=== PATIENT | female | born 1990 | race African-American/Black ===

== ENCOUNTER 2019-11-04 23:40 | Observation (INO) | payer OTHER, SELFPAY ==
[2019-11-04 23:52] VITALS: BP 82/63; PULSE 80
[2019-11-05] VITALS: BP 123/58; PULSE 72
[2019-11-05 00:15] VITALS: BP 105/66; PULSE 80
[2019-11-05] MEDS: ACETAMINOPHEN 500 MG TABLET 1000 MG PO (00:49)
--- NOTE | 2019-11-12 09:29 | PM.OBTRLD ---
OB - Triage/Final Diagnosis Final Diagnosis (1) False labor: Code(s): O47.9 - False labor, unspecified Status: Acute
== END 2019-11-05 02:05 | disposition home or self-care (01) ==
PROVIDERS: Admitting Provider Obstetrics & Gynecology Gynecology; Visit Provider Obstetrics & Gynecology Gynecology
DX: O47.1 False labor at or after 37 completed weeks of gestation (principal); Z3A.37 37 weeks gestation of pregnancy
CPT/HCPCS: A9270; G0378; G0379

== ENCOUNTER 2019-11-12 13:36 | Observation (INO) | payer OTHER, SELFPAY ==
--- NOTE | 2019-11-12 13:36 | OBADM ---
This patient, Sofia Verduzco, admitted to the OB room Labor/Delivery/Recovery 107 for observation. Patient/family oriented to hospital policies and general routines including ID bracelet, bed and alarms, visiting hours, pain management, procedures, bathroom and other care routines, personal items, smoking policy, room service/diet, and visiting hours. Patient/Family are encouraged to report perceived risks to care and to ask questions if they do not understand what they are told or what they should do.
[2019-11-12 14:00] VITALS: BMI 23.4
[2019-11-12 14:20] VITALS: TEMP 37.4
[2019-11-12 15:21] LABS: Add Urine Microscopic? YES; Appearance Urine Clear (Clear); Bacteria Urine Trace /hpf; Bilirubin Urine Negative (Negative); Blood Urine Negative (Negative); Color Urine Straw (Yellow); Glucose Urine UA 1+ mg/dL (Negative); Ketones Urine Negative (Negative); Leukocyte Esterase Ur Negative LEU/UL (NEGATIVE); Mucus Urine Rare /lpf; Nitrate Urine Negative (Negative); Protein Urine Negative (Negative); RBC Urine 0-2 /hpf (0-2); Specific Grav Ur 1.012 (1.001-1.035); Squamous Epithelial Cell Urine Many /hpf (Few); Urobilinogen Urine Negative mg/dL (<2.0); WBC Urine 0-3 /hpf (0-3)
--- NOTE | 2019-11-24 12:53 | PM.OBDSVD ---
OB - DS: Summary OB Procedures : None OB Procedures Intrapartum: Spontaneous Vag Delivery OB Procedures: : None Time Spent with Patient Time attestation: Total time spent providing and/or coordinating discharge services: Discharge Plan Discharge Discharging Clinician: Randolph Overton Patient Disposition: Home, Self-Care Activity: as tolerated Diet: regular Discharge Instructions: OB ANTEPARTUM DISCHARGE INSTRUCTIONS This information is given to help you properly care for yourself at home after your discharge from the hospital. Follow these instructions until your doctor tells you otherwise. DIET: Eat Three Well Balanced Meals per Day Drink at Least Eight 8-Ounce Glasses of Caffeine-Free Beverages Daily Additional Diet Instructions: ACTIVITY: As Tolerated Additional Activity Instructions: RETURN TO LABOR AND DELIVERY IF YOU HAVE: Any Change In Baby's Normal Movement Pattern Any Leakage of Fluid Contractions 3-5 Minutes Apart with Increasing Intensity Vaginal Bleeding Additional Reasons to Return to Labor and Delivery: Contractions may feel like abdominal pain, tightening, cramping, pressure, back ache, or thigh ache. 24 Hour Urine Collection: Continue 24 hour urine collection until at . When collection is completed, return specimen to the [facility]. See handout for 24 hour urine collection. OTHER INSTRUCTIONS: FOLLOW-UP CARE: Keep Next Scheduled Appointment To see in/on Valuables released to patient or family? N/A Medications from home returned to patient? N/A I Acknowledge Receipt of and Understand the Above Instructions IF YOU HAVE ANY QUESTIONS REGARDING THESE INSTRUCTIONS, PLEASE CALL [phone]. IF PROBLEMS ARISE, CALL YOUR PROVIDER. IF EMERGENCY CARE IS NEEDED, [facility] IS AVAILABLE 24 HOURS A DAY. Patient Instructions: Antibiotic Form Stand Alone Forms: General Discharge Information Follow-up/Referrals: Randolph Overton MD [Physician] - Discharge Medications: No Action hydrocodone-acetaminophen 5-325 mg Tablet 1 tab PO Q3H PRN (Reason: Moderate Pain (4-6)) Qty: 20 RF: 0 ibuprofen 600 mg Tablet 600 mg PO Q6H PRN (Reason: Cramping) Qty: 30 RF: 0 Date of admission: 11/12/19 13:36 Primary Care Provider: PHYSICIAN,PUBLIC SERVICE OFFICER Admitting Provider: Randolph Overton Discharge Date/Time: 11/12/19 16:49 Attending physician on admission: Randolph Overton
--- NOTE | 2019-11-24 12:53 | PM.OBTRLD ---
OB - Triage/Final Diagnosis Visit Information Reason for evaluation: threatened labor Evaluation Laboratory results: Laboratory Tests 11/12/19 15:07 Urine Color Straw Urine Appearance Clear Urine pH 9.0 Ur Specific [employer] 1.012 Urine Protein Negative Urine Glucose (UA) 1+ H Urine Ketones Negative Ur Blood (Man) Negative Urine Nitrate Negative Urine Bilirubin Negative Urine Urobilinogen Negative Ur Leukocyte Esterase Negative Urine RBC 0-2 Urine WBC 0-3 Ur Squamous Epith Cells Many H Urine Bacteria Trace Urine Mucus Rare
== END 2019-11-12 16:49 | disposition home or self-care (01) ==
PROVIDERS: Admitting Provider Obstetrics & Gynecology; Visit Provider Obstetrics & Gynecology
DX: O60.00 Preterm labor without delivery, unspecified trimester (principal); Z3A.00 Weeks of gestation of pregnancy not specified
CPT/HCPCS: 81001; 87077; 87086; 87088; G0378; G0379

== ENCOUNTER 2019-11-16 18:03 | Inpatient (IN) | payer OTHER, SELFPAY ==
[2019-11-16] VITALS (21 sets, daily range): BP systolic 92–119; BP diastolic 35–71; PULSE 69–93; TEMP 37.3; BMI 27.4
--- NOTE | 2019-11-16 18:33 | LDADM ---
This patient, Sofia Verduzco, was admitted to Labor/Delivery/Recovery 103 on 11/16/19 at 18:03. Plans for labor, pain management and were discussed with patient. Patient/family oriented to hospital policies and general routines including ID bracelet, bed and alarms, visiting hours, pain management, procedures, bathroom and other care routines, personal items, smoking policy, room service/diet and guest tray routines, infant security routines, and visiting hours. Patient/Family are encouraged to report perceived risks to care and to ask questions if they do not understand what they are told or what they should do. See OBIX for further documentation.
[2019-11-16 19:31] LABS: Basophils Percent Auto 0.2 % (0.2-1.2); Eosinophils Absolute Auto 0.1 K/mm3 (0-0.3); Eosinophils Percent Auto 1.1 % (0-4.4); Hematocrit 27.7 % (37.0-47.0); Hemoglobin 8.5 g/dL (12.0-15.0); Immature Granulocyte Absolute 0.04 K/mm3 (0.00-0.031); Immature Granulocyte Percent A 0.4 % (0-0.5); Lymphocytes Absolute Auto 1.57 K/mm3 (0.9-3.2); Lymphocytes Percent Auto 16.6 % (18.3-44.2); Mean Corpuscular HGB Conc 30.7 g/dl (32-36); Mean Corpuscular Hemoglobin 22.7 pg (26-34); Mean Corpuscular Volume 73.9 fl (80-100); Mean Platelet Volume 11.8 fl (7.4-10.4); Monocytes Absolute Auto 0.6 K/mm3 (0.1-0.6); Monocytes Percent Auto 6.3 % (2.6-8.5); Neutrophils Absolute Auto 7.1 K/mm3 (1.3-6.7); Neutrophils Percent Auto 75.4 % (45.5-73.1); Platelet Count Result 163 k/mm3 (150-375); Red Blood Count 3.75 M/mm3 (4.2-5.4); White Blood Count 9.4 K/mm3 (4.5-10.0)
[2019-11-16] MEDS: DINOPROSTONE 10 MG VAG INSERT VAGINAL (19:32)
[2019-11-16 19:47] LABS: Amphetamine Screen Urine Negative (Negative); Barbiturate Screen Urine Negative (Negative); Benzodiazepines Screen Urine Negative (Negative); Cannabinoid Screen Urine Positive (Negative); Cocaine Screen Urine Negative (Negative); Methadone Screen Urine Negative (Negative); Opiate Screen Urine Negative (Negative); Phencyclidine Screen Urine Negative (Negative)
[2019-11-16] MEDS: LACTATED RINGERS 1,000 ML 125 ML IV CONT (20:00)
[2019-11-16] MEDS: AMPICILLIN 2 GM/NS 100 ML 2 GM/100 ML BAG IVPB (20:00)
[2019-11-16 20:23] LABS: HIV 1/2 Ab P24 Ag Result Negative (Negative)
[2019-11-17] VITALS (84 sets, daily range): BP systolic 74–136; BP diastolic 46–94; PULSE 51–167; RESP 16–18; TEMP 36.6–37.2; O2SAT 100
[2019-11-17] MEDS: AMPICILLIN 1 GM/NS 50 ML 1 GM/50 ML BAG IVPB ×4 (00:02→11:36)
[2019-11-17] MEDS: OXYTOCIN 30 UNITS/NS 500 ML 30 UNITS/500 ML BAG IV CONT (05:15)
--- NOTE | 2019-11-17 06:21 | WPDANESEPP ---
Anes - Eval Pre Procedure Procedure: labor epidural Date/Time: 11/17/19 06:21 Surgeon: kirby Preop Diagnosis: pain during labor Pre Op Diagnosis: Induction of Labor Patient Data Age: 29 Gender: F Height: 1.7 m Weight: 79.5 kg Last Vital Signs Temp 36.9 C 11/17/19 04:30 Pulse 64 11/17/19 06:16 BP 100/46 L 11/17/19 06:16 Allergies Allergy/AdvReac Type Severity Reaction Status Date / Time No Known Allergies Allergy Verified 11/05/19 00:45 Laboratory Tests 11/16/19 11/16/19 11/16/19 19:11 19:11 19:11 WBC 9.4 K/mm3 K/mm3 (4.5-10.0) RBC 3.75 M/mm3 L M/mm3 (4.2-5.4) Hgb 8.5 g/dL L g/dL (12.0-15.0) Hct 27.7 % L % (37.0-47.0) MCV 73.9 fl L fl (80-100) MCH 22.7 pg L pg (26-34) MCHC 30.7 g/dl L g/dl (32-36) RDW 15.0 % H % (11.5-14.5) Plt Count 163 k/mm3 k/mm3 (150-375) MPV 11.8 fl H fl (7.4-10.4) Immature Gran % (Auto) 0.4 % % (0-0.5) Neut % (Auto) 75.4 % H % (45.5-73.1) Lymph % (Auto) 16.6 % L % (18.3-44.2) [place] % (Auto) 6.3 % % (2.6-8.5) Eos % (Auto) 1.1 % % (0-4.4) Baso % (Auto) 0.2 % % (0.2-1.2) Lymph # (Auto) 1.57 K/mm3 K/mm3 (0.9-3.2) [place] # (Auto) 0.6 K/mm3 K/mm3 (0.1-0.6) Eos # (Auto) 0.1 K/mm3 K/mm3 (0-0.3) Baso # (Auto) 0.0 K/mm3 K/mm3 (0.0-0.1) Abs Immat Gran (auto) 0.04 K/mm3 H K/mm3 (0.00-0.031) Absolute Neuts (auto) 7.1 K/mm3 H K/mm3 (1.3-6.7) Absolute Nucleated RBC 0.0 K/mm3 K/mm3 (0.0-0.012) Nucleated RBC % 0.0 % % (0.0-0.2) Urine Opiates Screen Urine Methadone Screen Ur Barbiturates Screen Ur Phencyclidine Scrn Ur Amphetamine Screen U Benzodiazepines Scrn Urine Cocaine Screen U Cannabinoids Screen RPR Pending HIV 1&2 Ab/P24 Ag 4thGn Blood Type B Positive Antibody Screen Negative 11/16/19 11/16/19 19:11 19:20 WBC RBC Hgb Hct MCV MCH MCHC RDW Plt Count MPV Immature Gran % (Auto) Neut % (Auto) Lymph % (Auto) [place] % (Auto) Eos % (Auto) Baso % (Auto) Lymph # (Auto) [place] # (Auto) Eos # (Auto) Baso # (Auto) Abs Immat Gran (auto) Absolute Neuts (auto) Absolute Nucleated RBC Nucleated RBC % Urine Opiates Screen Negative (Negative) Urine Methadone Screen Negative (Negative) Ur Barbiturates Screen Negative (Negative) Ur Phencyclidine Scrn Negative (Negative) Ur Amphetamine Screen Negative (Negative) U Benzodiazepines Scrn Negative (Negative) Urine Cocaine Screen Negative (Negative) U Cannabinoids Screen Positive A (Negative) RPR HIV 1&2 Ab/P24 Ag 4thGn Negative (Negative) Blood Type Antibody Screen Patient hx anesthesia problems: none Family hx anesthesia problems: none PMFSH Social History Social History Smoking status: Former smoker Second hand tobacco smoke exposure: No Substance use: current Gender identity (if verbalized by the patient): Female Spiritual care concerns: No Exam Day of Procedure 11/17/19 06:21
[2019-11-17] MEDS: LACTATED RINGERS 1,000 ML 125 ML IV CONT ×2 (07:30→09:22)
[2019-11-17 07:53] LABS: Rapid Plasma Reagin Non-Reactive (NonReactive)
--- NOTE | 2019-11-17 12:48 | PM.OBPRVD ---
OB - Delivery Note Procedure Route of delivery: Laceration description: None Specimen: No Estimated blood loss (mL): 200 Anesthesia type: Epidural Disposition: floor Narrative: Patient prepped and draped in usual manner for this procedure. Maternal expulsive efforts delivered vertex with nuchal cord noted and readily reduced. Rest of baby was delivered cord was clamped and cut and baby was placed on maternal abdomen. Placenta delivered readily. Cervix vagina and vulva were inspected no lacerations or tears. At this point seizure was considered terminated with immediate postop condition of mother and baby both excellent. Baby Weeks of gestation at delivery: 39 Infant gender: Female Weight (pounds): 6 Weight (ounces): 14 score one minute: 8 score five minutes: 8
[2019-11-17] MEDS: OXYTOCIN 30 UNITS/NS 500 ML 30 UNITS/500 ML BAG 125 UNITS IV CONT (13:08)
--- NOTE | 2019-11-17 15:01 | PC.NURSE ---
PT arrived on unit via wheelchair accompanied by and taken to room 284. PT oriented to room 284 and surrounding area. PT introductions made and plan of care discussed per post , pain management, bottle feeding, daily care activities. UDS and meconium drug screen explained. Welcome packet reviewed and discussed. PT verbalized understanding of such care.
[2019-11-17] MEDS: WITCH HAZEL 40 PADS 1 PAD TOPICAL (15:41)
[2019-11-17] MEDS: BENZOCAINE 20% AER SPR (*SP) 56 GM CAN 1 SPRAY TOPICAL (15:41)
[2019-11-17] MEDS: ACETAMINOPHEN 325 MG TABLET 650 MG PO (15:42)
[2019-11-17] MEDS: IBUPROFEN 600 MG TABLET PO ×2 (15:43→22:27)
[2019-11-17] MEDS: POLYSACCHARIDE IRON COMPLEX 150 MG CAPSULE PO (15:44)
[2019-11-17] MEDS: DOCUSATE SODIUM 100 MG CAPSULE PO (15:44)
[2019-11-18] MEDS: IBUPROFEN 600 MG TABLET PO (04:46)
[2019-11-18 05:28] LABS: Hemoglobin 8.5 g/dL (12.0-15.0)
--- NOTE | 2019-11-18 07:32 | PM.OBDSVD ---
OB - DS: Summary OB Procedures : None OB Procedures Intrapartum: Spontaneous Vag Delivery OB Procedures: : None Time Spent with Patient Time attestation: Total time spent providing and/or coordinating discharge services: DS: Data Data Completed and Pending Labs on day of discharge: Labs from last 24 hours 11/18/19 11/16/19 04:46 19:11 Hgb 8.5 L Hct 28.0 L RPR Non-reactive Discharge Plan Discharge Discharging Clinician: Randolph Overton Patient Disposition: Home, Self-Care Activity: as tolerated Diet: as tolerated Discharge Instructions: Education: Mom and Baby Guide Given to: Mother Follow-Up: Call your delivering provider's office for an appointment to be seen in: 3 weeks Mom and baby should come to the [facility] for the follow-up appointment. Appointment Date/Time: at What to expect at your follow-up visit: Physical Assessment Call [phone] if you are unable to keep your appointment time. BREAST CARE: 1. Wear a snug supportive bra. 2. For engorgement discomfort: A. May apply ice packs EPISIOTOMY/PERINEAL CARE: 1. Until bleeding stops, use your deepika bottle after urinating 2. Change your pad frequently throughout the day 3. No tub baths until seen by your physician - You may shower ACTIVITY: 1. Rest as much as possible. 2. Do not exercise or lift anything heavier than your baby (such as laundry or other children.) 3. Avoid stairs or driving as much as possible. 4. Do not put anything into the vagina. No douching, tampons, or sexual activity until seen by physician. NOTIFY PHYSICIAN IF YOU HAVE ANY QUESTIONS OR IF ANY OF THE FOLLOWING SYMPTOMS OCCUR: 1. If your perineum becomes red, swollen, or more painful than what you have experienced in the hospital. 2. If your vaginal bleeding becomes foul smelling. 3. If your vaginal bleeding becomes more heavy than a period or if your bleeding changes from pink to bright red. However, you may pass an occasional walnut-sized clot once or twice for the first week . 4. If you experience a sharp, shooting pain in you calves. 5. If you discover a hard, reddened area on your breast or if you experience flu-like symptoms. DIET: 1. Eat regular, well-balanced meals. 2. Drink plenty of fluids daily. Stand Alone Forms: General Discharge Information Follow-up/Referrals: Randolph Overton MD [Physician] - 3 Weeks Discharge Medications: New hydrocodone-acetaminophen 5-325 mg Tablet 1 tab PO Q3H PRN (Reason: Moderate Pain (4-6)) Qty: 20 RF: 0 ibuprofen 600 mg Tablet 600 mg PO Q6H PRN (Reason: Cramping) Qty: 30 RF: 0 Date of admission: 11/16/19 18:03 Primary Care Provider: PHYSICIAN,CONCRETE POURING SUPERVISOR Admitting Provider: Randolph Overton Discharge Date/Time: 11/18/19 11:52 Attending physician on admission: Randolph Overton
[2019-11-18] MEDS: DOCUSATE SODIUM 100 MG CAPSULE PO (07:59)
[2019-11-18] MEDS: MULTIVIT/MIN/PREN/FOL AC/IRON TABLET 1 TAB PO (07:59)
[2019-11-18] MEDS: POLYSACCHARIDE IRON COMPLEX 150 MG CAPSULE PO (07:59)
[2019-11-18] MEDS: WITCH HAZEL 40 PADS 1 PAD TOPICAL (08:07)
[2019-11-18] MEDS: BENZOCAINE 20% AER SPR (*SP) 56 GM CAN 1 SPRAY TOPICAL (08:07)
[2019-11-18 08:15] VITALS: BP 108/66; PULSE 51; RESP 18; TEMP 37; O2SAT 100
--- NOTE | 2019-11-18 09:58 | PM.OBDSVD ---
OB - DS: Summary OB Procedures : None OB Procedures Intrapartum: Spontaneous Vag Delivery OB Procedures: : None Time Spent with Patient Time attestation: Total time spent providing and/or coordinating discharge services: DS: Data Data Completed and Pending Labs on day of discharge: Labs from last 24 hours 11/18/19 04:46 Hgb 8.5 L Hct 28.0 L Discharge Plan Discharge Discharging Clinician: Randolph Overton Patient Disposition: Home, Self-Care Activity: as tolerated Diet: as tolerated Patient Instructions: Antibiotic Form Stand Alone Forms: General Discharge Information Follow-up/Referrals: Randolph Overton MD [Physician] - 3 Weeks Discharge Medications: New hydrocodone-acetaminophen 5-325 mg Tablet 1 tab PO Q3H PRN (Reason: Moderate Pain (4-6)) Qty: 20 RF: 0 ibuprofen 600 mg Tablet 600 mg PO Q6H PRN (Reason: Cramping) Qty: 30 RF: 0 Date of admission: 11/16/19 18:03 Primary Care Provider: PHYSICIAN,LOGGING SUPERVISOR Admitting Provider: Randolph Overton Attending physician on admission: Randolph Overton
--- NOTE | 2019-11-18 12:16 | PC.NURSE ---
1152 Pt discharged to a no care bed per her request. She states she needs to attend her daughter's graduation.
--- NOTE | 2019-11-18 13:21 | PCCCNOTE ---
Care Coordination. Pt. referred to for depression/anxiety and positive THC UDS. Pt. reports this is her fourth baby. She plans to return home with help from her mother and grandmother. She reports FOB involved, but not living with them. Pt. is planning to go to [facility] appointment tomorrow. She reports having all needed resources for baby including bassinet. She denies [facility] involvement. Spoke with Natalia Evans from [facility] Hotline ( ) and she took pt.'s situation as information only. Pt. reports marijuana use is occasional and helps calm her down. She denies depression and anxiety currently and reports she did experience it some during , but rarely before. Discussed depression and watching for signs symptoms of this. Pt. denies needs for community resources or counseling information.
== END 2019-11-18 11:52 | disposition home or self-care (01) | DRG 560 ==
LOC: ANHLDR 11-17 10:05 → ANHOB2 11-17 15:16
PROVIDERS: Admitting Provider Obstetrics & Gynecology; Visit Provider Obstetrics & Gynecology
DX: O99.824 Streptococcus B carrier state complicating childbirth (principal); Z37.0 Single live birth; Z3A.39 39 weeks gestation of pregnancy; O69.81X0 Labor and delivery complicated by cord around neck, without compression, not applicable or unspecified
CPT/HCPCS: 36415; 80307; 85014; 85018; 85025; 86592; 86703; 86850; 86900; 86901; A9270; G0432; J0290; J2590; J2795; J7120